=== PATIENT | female | born 1980 | race Hispanic/Latino ===

== ENCOUNTER 2017-05-19 09:08 | Emergency (ER) | payer BC ==
[~2017-05-19] VITALS: Ht 162.6 cm; Wt 56.4 kg
[~2017-05-19 09:08] MED LIST: Colace PO; Feosol PO; KEFLEX500 MG PO; Motrin PO; Natalcare Rx,Pramile PO; Percocet 5/325,Endoc PO; Vicodin,Norco 5/325 PO; ZOFRAN4 MG PO
[2017-05-19 10:31] LABS: HEMATOCRIT 40.9 % (36.0-46.0); MCH 29.1 PG (29.0-34.0); MCHC 33.5 G/DL (30.0-36.0); MEAN PLAT.VOLUME 12.7 uM^3 (9.5-12.4); PLATELET COUNT 157 K/uL (156-360); RBC DIS.WIDTH-CV 12.2 % (11.8-14.6); RBC DIS.WIDTH-SD 39.1 % (39-53); WHITE BLOOD COUNT 5.2 K/uL (4.1-10.2)
[2017-05-19 10:50] LABS: CHLORIDE 109 mEq/L (99-109); POTASSIUM 3.5 mEq/L (3.7-5.4); SODIUM 138 mEq/L (136-147)
[2017-05-19 10:52] LABS: GLUCOSE 110 mg/dL (70-99)
[2017-05-19 10:53] LABS: ANION GAP 8 MEQ/L (2-14)
[2017-05-19 10:54] LABS: TOTAL BILIRUBIN 0.5 mg/dL (0.0-1.0)
[2017-05-19 10:55] LABS: ALKALINE PHOSPHATASE 81 IU/L (3-129)
[2017-05-19 10:56] LABS: GFR ESTIMATE (CALCULATED) > 59 mL/min/
[2017-05-19 10:57] LABS: UREA NITROGEN (BUN) 7 mg/dL (9-23)
[2017-05-19 11:08] LABS: QUANTITATIVE HCG < 4.0 MIU/ML
[2017-05-19 11:13] LABS: ADD MIUA? YES; BILIRUBIN NEGATIVE; BLOOD NEGATIVE; COLOR YELLOW ((YELLOW)); GLUCOSE (STRIP) NEGATIVE; KETONES 20; LEUKOCYTES TRACE; NITRITE NEGATIVE; PROTEIN (STRIP) 30; SPECIFIC GRAVITY 1.028 (1.000-1.030); UROBILINOGEN 0.2 MG/DL (0.2-1.0)
[2017-05-19 11:18] LABS: BACTERIA RARE /HPF; EPITHELIAL CELLS RARE /HPF; MUCUS 3+ /LPF; RED BLOOD CELLS 0-5 /HPF (0-5); UCUL ADDED? YES
[2017-05-19] MEDS ORDERED: BENTYL10 MG PO (12:39)
[2017-05-19] MEDS ORDERED: ZOFRAN ODT4 MG PO (12:39)
[2017-05-19 12:53] VITALS: BP 101/57
== END 2017-05-19 12:54 | disposition home or self-care (01) ==
LOC: EME 09:08
DX: R10.13 Epigastric pain (principal); R11.2 Nausea with vomiting, unspecified
CPT/HCPCS: 74177; 80053; 81003; 84702; 85027; 87086; 99281; 99285; J1885; J2405; J7030